=== PATIENT | female | born 1940 | race Caucasian/White ===

== ENCOUNTER 2018-09-30 15:58 | Inpatient (IN) | payer MEDICARE, OTHER ==
[2018-10-01] MEDS ORDERED: Albuterol 8 GM Inhaler INH PRN (13:54)
--- NOTE | 2018-10-01 14:59 | PCM.HP ---
H&P History of Present Illness - General Date of Service: 10/01/18 Admit Problem/Dx: Admission Diagnosis/Problem Admission Diagnosis/Problem Arthroplasty of knee Source of Information: Patient History Limitations: Reports: No Limitations - History of Present Illness Initial Comments - Free Text/Narative: Ms. Young is a 78 yo female with PMH of OA, HTN, CHF, obesity, HLD, JEANE, nonalcoholic liver disease, COPD, DM, and chronic kidney disease who is admitted to swing bed for rehabilitation following a left total knee arthroplasty. She underwent left TKA on 09/28/18 for end stage osteoarthritis. She had the expected postoperative drop in her hemoglobin. She has had some constipation for which she was given milk of magnesia yesterday with good success. Her hospitalization was otherwise uncomplicated. She states that her knee pain is well controlled on her current regimen. Her appetite has not been great since surgery but she has had no nausea or vomiting. She has not had another bowel movement yet today but denies any abdominal pain or distension. She is usually very regular and has a bowel movement daily. She denies any issues with voiding and has not had any dysuria. No chest pain, shortness of breath, fever, or chills. She is hoping for a quick recovery as her son is here visiting from [place]. Left Knee Pain Score (Numeric/FACES): 4 - Related Data Allergies/Adverse Reactions: Allergies Allergy/AdvReac Type Severity Reaction Status Date / Time penicillin G Allergy Rash Verified 09/30/18 16:24 cerivastatin sodium AdvReac Muscle Verified 09/30/18 16:24 [From Baycol] Aches fluvastatin sodium AdvReac Muscle Verified 09/30/18 16:24 [From Lescol] Aches gemfibrozil AdvReac Muscle Verified 09/30/18 16:24 Aches pravastatin AdvReac Muscle Verified 09/30/18 16:24 Aches Home Medications: Home Meds Albuterol Sulfate [Albuterol Sulfate HFA] 1 - 2 puff PO Q4HR PRN 02/26/13 [ History] Cholecalciferol (Vitamin D3) [Vitamin D] 5,000 unit PO DAILY 02/26/13 [History] Multivitamin [Multi-Vitamin Daily] 1 tab PO DAILY 02/26/13 [History] Fenofibrate Nanocrystallized [Tricor] 145 mg PO DAILY 04/03/17 [History] Budesonide/Formoterol Fumarate [Symbicort 160-4.5 Mcg Inhaler] 2 puff PO BID 10/11 [History] Chlorthalidone 12.5 mg PO Q2D 11/18/17 [History] Insulin Detemir [Levemir Flextouch] 32 unit SQ BEDTIME 11/18/17 [History] Acetaminophen 650 mg PO Q4HR PRN 10/01/18 [History] Aspirin [Aspirin EC] 325 mg PO BIDMEALS 10/01/18 [History] Aspirin [Halfprin] 81 mg PO Q48H 10/01/18 [History] Ezetimibe [Zetia] 10 mg PO DAILY 10/01/18 [History] Lactobacillus Acidophilus [Probiotic] 1 each PO DAILY 10/01/18 [History] Lisinopril 20 mg PO DAILY 10/01/18 [History] Omeprazole 20 mg PO DAILY 10/01/18 [History] Polyethylene Glycol 3350 [MiraLAX] 17 gm PO DAILY 10/01/18 [History] Sennosides/Docusate Sodium [Senna-Docusate Sodium Tablet] 1 tab PO BID 10/01/18 [History] SitaGLIPtin [Januvia] 50 mg PO DAILY 10/01/18 [History] amLODIPine Besylate [Amlodipine Besylate] 2.5 mg PO DAILY 10/01/18 [History] oxyCODONE 5 mg PO Q4HR PRN 10/01/18 [History] traMADol [Ultram] 50 mg PO Q6H PRN 10/01/18 [History] Past Medical History HEENT History: Reports: Cataract Other HEENT History: PSEUDOPHAKOS. HYPERMETROPIA. 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: Reports: Musculoskeletal History: Reports: Osteoarthritis Other Musculoskeletal History: MORBID OBESITY Neurological History: Reports: Concussion, Neuropathy, Peripheral Psychiatric History: Reports: None Endocrine/Metabolic History: Reports: Diabetes, Type II, Obesity/BMI 30+ Hematologic History: Reports: None Immunologic History: Reports: None Oncologic (Cancer) History: Reports: None Dermatologic History: Reports: None - Infectious Disease History Infectious Disease History: Reports: None - Past Surgical History Head Surgeries/Procedures: Reports: None HEENT Surgical History: Reports: Adenoidectomy, Cataract Surgery, Tonsillectomy GI Surgical History: Reports: Appendectomy, Cholecystectomy Musculoskeletal Surgical History: Reports: Hip Replacement, Knee Replacement, Other (See Below) Oncologic Surgical History: Reports: Biopsy of Breast Social & Family History - Family History Cardiac: Reports: Hypertension Oncologic: Reports: Breast, Prostate - Tobacco Use Smoking Status *Q: Former Smoker Years of Tobacco use: 30 Packs/Tins Daily: 1 Used Tobacco, but Quit: Yes Month/Year Tobacco Last Used: - Caffeine Use Caffeine Use: Reports: Coffee, Tea Other Caffeine Use: vivarin one time a day - Alcohol Use Alcohol Use History: No - Recreational Drug Use Recreational Drug Use: No - Living Situation & Occupation Living situation: Reports: Single ( and ), Alone Occupation: Retired H&P Review of Systems - Review of Systems: Review Of Systems: See Below General: Reports: No Symptoms HEENT: Reports: No Symptoms Pulmonary: Reports: No Symptoms Cardiovascular: Reports: No Symptoms Gastrointestinal: Reports: No Symptoms Genitourinary: Reports: No Symptoms Musculoskeletal: Reports: Joint Pain Skin: Reports: No Symptoms Psychiatric: Reports: No Symptoms Neurological: Reports: No Symptoms Exam - Exam Exam: See Below - Vital Signs Vital Signs: Last Vital Signs Temp 36.5 C 10/01/18 12:14 Pulse 80 10/01/18 12:14 Resp 16 10/01/18 12:14 BP 140/79 10/01/18 12:14 Pulse Ox 94 L 10/01/18 12:14 Weight: 82.554 kg - Exam General: Alert, Oriented, Cooperative HEENT: Conjunctiva Clear, Mucosa Moist & [place], Posterior Pharynx Clear, Pupils Equal, Pupils Reactive Neck: Supple, Trachea Midline. No: Lymphadenopathy, Thyromegaly Lungs: Clear to Auscultation, Normal Respiratory Effort Cardiovascular: Regular Rate, Regular Rhythm, Normal S1, Normal S2 GI/Abdominal Exam: Normal Bowel Sounds, Soft, Non-Tender, No Organomegaly, No Distention, No Mass Extremities: Normal Inspection, Non-Tender, No Pedal Edema, Normal Capillary Refill, Other (left knee incision is well approximated and without any surrounding erythema or edema) Peripheral Pulses: 2+: Radial (L), Radial (R) Skin: Warm, Dry, Incision *Q Meaningful Use (ADM) - VTE *Q VTE Mechanical Contraindications *Q: Bilateral Lower Surgery VTE Pharmacological Contraindications *Q: Risk of Bleeding - Problem List (1) S/P total knee arthroplasty SNOMED Code(s): 2274681990190, 772596712, 8252779343833 ICD Code: Z96.659 - PRESENCE OF UNSPECIFIED ARTIFICIAL KNEE JOINT Status: Acute Current Visit: Yes Qualifiers: Laterality: left Qualified Code(s): Z96.652 - Presence of left artificial knee joint (2) Constipation SNOMED Code(s): 59900478 ICD Code: K59.00 - CONSTIPATION, UNSPECIFIED Status: Acute Current Visit : Yes Qualifiers: Constipation type: drug induced constipation Qualified Code(s): K59.03 - Drug induced constipation (3) Diabetes SNOMED Code(s): 23131767 ICD Code: E11.9 - TYPE 2 DIABETES MELLITUS WITHOUT COMPLICATIONS Status: Chronic Current Visit: Yes Qualifiers: Diabetes mellitus type: type 2 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: with intermodal truck driver use Diabetes mellitus complication status: with other specified complication Qualified Code(s): E11.69 - Type 2 diabetes mellitus with other specified complication; Z79.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 (4) Hyperlipidemia SNOMED Code(s): 58359910 ICD Code: E78.5 - HYPERLIPIDEMIA, UNSPECIFIED Status: Chronic Current Visit: Yes Qualifiers: Hyperlipidemia type: unspecified Qualified Code(s): E78.5 - Hyperlipidemia , unspecified (5) Osteoarthritis SNOMED Code(s): 722555581 ICD Code: M19.90 - UNSPECIFIED OSTEOARTHRITIS, UNSPECIFIED SITE Status: Chronic Current Visit: Yes Qualifiers: Osteoarthritis location: multiple joints Osteoarthritis type: primary Qualified Code(s): M15.0 - Primary generalized (osteo)arthritis (6) Sleep apnea SNOMED Code(s): 26657570 ICD Code: G47.30 - SLEEP APNEA, UNSPECIFIED Status: Chronic Current Visit : Yes Qualifiers: Sleep apnea type: obstructive Qualified Code(s): G47.33 - Obstructive sleep apnea (adult) (pediatric) (7) Chronic kidney disease SNOMED Code(s): 340523205 ICD Code: N18.9 - CHRONIC KIDNEY DISEASE, UNSPECIFIED Status: Chronic Current Visit: Yes Qualifiers: Chronic kidney disease stage: stage 3 (moderate) Qualified Code(s): N18.3 - Chronic kidney disease, stage 3 (moderate) (8) COPD (chronic obstructive pulmonary disease) SNOMED Code(s): 64289817 ICD Code: J44.9 - CHRONIC OBSTRUCTIVE PULMONARY DISEASE, UNSPECIFIED Status : Chronic Current Visit: No Qualifiers: COPD type: unspecified COPD Qualified Code(s): J44.9 - Chronic obstructive pulmonary disease, unspecified (9) Heart failure, diastolic, chronic SNOMED Code(s): 328439942 ICD Code: I50.32 - CHRONIC DIASTOLIC (CONGESTIVE) HEART FAILURE Status: Chronic Current Visit: No (10) Hypertension SNOMED Code(s): 35546471 ICD Code: I10 - ESSENTIAL (PRIMARY) HYPERTENSION Status: Chronic Current Visit: No Qualifiers: Hypertension type: essential hypertension Qualified Code(s): I10 - Essential (primary) hypertension (11) Morbid obesity SNOMED Code(s): 690140263 ICD Code: E66.01 - MORBID (SEVERE) OBESITY DUE TO EXCESS CALORIES Status: Chronic Current Visit: No (12) Nonalcoholic liver disease, chronic SNOMED Code(s): 96631601 ICD Code: K76.9 - LIVER DISEASE, UNSPECIFIED Status: Chronic Current Visit: No Problem List Initiated/Reviewed/Updated: Yes Orders Last 24hrs: Active Orders 24 hr Category Date Time Status Admission Status [Patient Status] [ADT] Routine ADT 10/01/18 08:00 Active Accu Check [Blood Glucose Check, Bedside] [RC] 07,11,17 Care 10/01/18 12:37 Active Communication Order [RC] , Care 10/01/18 12:38 Active May Shower [RC] 07 Care 10/01/18 12:38 Active Up With Assistance [RC] , Care 10/01/18 12:37 Active OT Evaluation and Treatment [CONS] Routine Cons 10/01/18 12:36 Active PT Evaluation and Treatment [CONS] Routine Cons 10/01/18 12:36 Active ADA Diabetic [[place] [employer] Diet] [DIET Diet 10/01/18 Dinner Active ] Acetaminophen [Tylenol] Med 10/01/18 13:54 Ordered 650 mg PO Q4HR PRN Albuterol [Take Home: Albuterol 6.7 GM, 1 INH Pack] Med 10/01/18 13:54 Ordered 2 puff INH Q4HR PRN Aspirin [Ecotrin] Med 10/01/18 18:00 Ordered 325 mg PO BIDMEALS Budesonide/Formoterol Med 10/01/18 20:00 Ordered 2 puff PO BID Chlorthalidone Med 10/01/18 14:00 Ordered 12.5 mg PO Q2D Cholecalciferol (Vitamin D3) Med 10/02/18 08:00 Ordered 5,000 unit PO DAILY Docusate Sodium/Sennosides [Senna Plus] Med 10/01/18 20:00 Ordered 1 tab PO BID Ezetimibe [Zetia] Med 10/02/18 08:00 Ordered 10 mg PO DAILY Fenofibrate Nanocrystallized [Tricor] Med 10/02/18 08:00 Ordered 145 mg PO DAILY Insulin Detemir [Levemir Flextouch] Med 10/01/18 20:00 Ordered 32 unit SQ BEDTIME Lactobacillus Acidophilus [Probiotic] Med 10/02/18 08:00 Ordered 1 each PO DAILY Lisinopril [Prinivil] Med 10/02/18 08:00 Ordered 20 mg PO DAILY Multivitamin [Multi-Vitamin Daily] Med 10/02/18 08:00 Ordered 1 tab PO DAILY Non-Formulary Medication [NF Drug] Med 10/02/18 08:00 Ordered 1 each INH DAILY Omeprazole Med 10/02/18 08:00 Ordered 20 mg PO DAILY Polyethylene Glycol 3350 [MiraLAX] Med 10/02/18 08:00 Ordered 17 gm PO DAILY SitaGLIPtin [Januvia] Med 10/02/18 08:00 Ordered 50 mg PO DAILY amLODIPine [Norvasc] Med 10/02/18 08:00 Ordered 2.5 mg PO DAILY oxyCODONE Med 10/01/18 13:54 Ordered 5 mg PO Q4HR PRN traMADol [Ultram] Med 10/01/18 13:54 Ordered 50 mg PO Q6H PRN DARELL Bandage [Elastic Wrap] [OM.PC] Routine Oth 10/01/18 12:42 Ordered CM Case Management Follow Up [CM] Routine Oth 10/01/18 12:37 Ordered Ice Pack [Ice Therapy] [OM.PC] Routine Oth 10/01/18 12:38 Ordered VTE Mechanical Contraindications [AST] Click To Edit Oth 10/01/18 14:56 Ordered VTE Pharmacological Contraindications [AST] Click To Oth 10/01/18 14:56 Ordered Edit Resuscitation Status Routine Resus Stat 10/01/18 13:53 Ordered Medication Orders Acetaminophen (Tylenol) 650 mg PO Q4HR PRN PRN Reason: Pain (mild 1-3) Albuterol (Take Home: Albuterol 6.7 Gm, 1 Inh Pack) packet INH Q4HR PRN PRN Reason: Shortness of Breath Amlodipine Besylate (Norvasc) 2.5 mg PO DAILY ERIC Aspirin (Ecotrin) 325 mg PO BIDMEALS ERIC Chlorthalidone (Chlorthalidone) 12.5 mg PO Q48H ERIC Ezetimibe (Zetia) 10 mg PO DAILY ERIC Fenofibrate (Fenofibrate) 134 mg PO DAILY ERIC Lisinopril (Prinivil) 20 mg PO DAILY ERIC Non-Formulary Medication (Budesonide/Formoterol) 2 puff PO BID ERIC Non-Formulary Medication (Cholecalciferol (Vitamin D3)) 5,000 unit PO DAILY ERIC Non-Formulary Medication (Insulin Detemir [Levemir Flextouch]) 32 unit SQ BEDTIME ERIC Non-Formulary Medication (Lactobacillus Acidophilus [Probiotic]) 1 each PO DAILY ERIC Non-Formulary Medication (Multivitamin [Multi-Vitamin Daily]) 1 tab PO DAILY ERIC Non-Formulary Medication (Sitagliptin [Januvia]) 50 mg PO DAILY ERIC Non-Formulary Medication (Nf Drug) 1 each INH DAILY ERIC Omeprazole (Omeprazole) 20 mg PO DAILY ERIC Oxycodone HCl (Oxycodone) 5 mg PO Q4HR PRN PRN Reason: Pain (severe 7-10) Polyethylene Glycol (Miralax) 17 gm PO DAILY ERIC Senna/Docusate Sodium (Senna Plus) 1 tab PO BID ERIC Tramadol HCl (Ultram) 50 mg PO Q6H PRN PRN Reason: Pain (moderate 4-6) Assessment/Plan Comment:: #1 s/p TKA - Patient is doing well postoperatively. - Wound cares and icing per orders from [place]. - Continue current pain regimen: tylenol for mild, tramadol for moderate, and oxycodone for severe. - Will wean narcotics as able. - PT and OT consults. #2 Constipation - Continue miralax and senna. - Anticipate this will improve as her narcotic requirements decrease. - Can use milk of magnesia PRN since this worked well for her in [place]. #3 Diabetes #4 Hyperlipidemia #5 OA #6 JEANE #7 CKD #8 COPD #9 CHF #10 Hypertension #11 Obesity #12 Nonalcoholic fatty liver disease - All chronic conditions stable. - Accuchecks TID. - Patient does not use CPAP. - Continue all home medications as per hospital discharge list. Patient will be admitted to swing bed for strengthening prior to return home independently - length of stay will be determined by how well she progresses with PT but would anticipate a max of 1-2 weeks. Her PCP will follow her course from here. No indication for VTE prophylaxis other than the aspirin recommended by ortho. Code status is full - discussed on admission.
[2018-10-01] MEDS: oxyCODONE 5 MG Tab PO PRN ×2 (15:03→21:02)
[2018-10-01] MEDS: Acetaminophen 325 MG Tab PO PRN (15:03)
[2018-10-01] MEDS: Aspirin 325 MG Tab.EC PO SCH (18:02)
[2018-10-01] MEDS: Insulin Glargine,Human Rec. Analog 100 Units/ML 3 ML Pen SUBCUT SCH (20:14)
[2018-10-02] MEDS: oxyCODONE 5 MG Tab PO PRN ×4 (03:59→17:27)
[2018-10-02] MEDS: Polyethylene Glycol 3350 Powder 17 GM Packet PO SCH (07:55)
[2018-10-02] MEDS: Omeprazole 20 MG Cap.CR PO SCH (07:56)
[2018-10-02] MEDS: Fenofibrate,Micronized 134 MG Cap PO SCH (08:00)
[2018-10-02] MEDS ORDERED: amLODIPine 5 MG Tab PO SCH (08:00)
[2018-10-02] MEDS ORDERED: Non-Formulary Medication 1 Each INH SCH (08:00)
[2018-10-02] MEDS: Aspirin 325 MG Tab.EC PO SCH ×2 (08:01→17:27)
[2018-10-02] MEDS: SitaGLIPtin 25 MG Tab PO SCH (08:01)
[2018-10-02] MEDS: Lisinopril 20 MG Tab PO SCH (08:01)
[2018-10-02] MEDS: Lactobacillus Rhamnosus GG (Probiotic) Cap PO SCH (08:02)
[2018-10-02] MEDS: Ezetimibe 10 MG Tab PO SCH (08:02)
[2018-10-02] MEDS: Multivitamins with Iron/Calcium/Folic Acid/Minerals Tab PO SCH (08:02)
[2018-10-02] MEDS: Cholecalciferol (Vitamin D3) 25 MCG Tab PO SCH (08:08)
[2018-10-02] MEDS: FLUTICASONE INH SCH (08:12)
[2018-10-02] MEDS: VILANTEROL INH SCH (08:12)
[2018-10-02] MEDS: Chlorthalidone 25 MG Tab PO SCH (09:29)
[2018-10-02] MEDS: traMADol 50 MG Tab PO PRN (13:28)
--- NOTE | 2018-10-02 17:58 | PN ---
Progress Note for LAY HERNÁNDEZ Date: 10/02/2018 Room #: VM.210 SUBJECTIVE: This is a 78-year-old who was admitted to swing bed after a 3-day acute stay for a left total knee replacement performed on 09/[address] Wood. She does have underlying diabetes. She has had a few blood sugar checks when she has been here, most recently it was 150 before eating. She is on Levemir 32 units daily and Januvia. We discussed sliding scale is not needed unless blood sugars would get up over like 250. Blood pressure is a little bit higher right now getting back from PT, but she feels like her pain is under good control. She has been getting Tylenol and took an oxycodone right before she went up for PT. She lives in her own home and has stairs. She used 2 oxycodone yesterday. She just came yesterday and 3 today. She has not had any breathing problems. She does have a history of COPD, otherwise, has been on aspirin twice daily for DVT prophylaxis. Her postop hemoglobin was 11.9. Her creatinine was excellent at 1.16 on the . She is having bowel movements. OBJECTIVE: Vital Signs: Right now, her temperature 98.2, pulse 90, blood pressure 154/83, respiratory rate 18, and O2 of 97% on room air. General: She is in no acute distress. Heart: Regular rate and rhythm. Lungs: Lung sounds are clear to auscultation bilaterally without crackles or wheezes. Extremities: Warm and dry. No edema. No calf tenderness. Her left knee incision is well healed. Abdomen: Mildly distended, that is her baseline. Neurologic: Mental status: She is alert and orientated x3. ASSESSMENT AND PLAN: 1. Left knee replacement, doing well. Continue with physical therapy and same pain control. Up in the halls t.i.d. per Physical Therapy over the weekend. 2. Diabetes type 2, on Lantus 32 units daily. We will continue with the same and make adjustments if needed. We will continue with at least 3 times a day Accu-Cheks. 3. Essential hypertension. We will continue to monitor blood pressures. We will continue home medications. 4. Deep vein thrombosis prophylaxis. We will continue the aspirin as outlined by Ortho. 5. Obesity and history of sleep apnea. She does not wear a CPAP. 6. Chronic obstructive pulmonary disease. We will continue her same inhalers. 7. DVT prophylaxis on ASA per ortho PLAN: At this point, the patient will continue on swing bed cares. It is going to be at least another week of therapies. We will check in on her periodically and as needed. Otherwise, she will continue with incentive spirometry and same pain control measures and bowel regimen. MKA: 10/02/2018 17:18:59 MODL: 10/02/2018 17:40:58 /[id number] MTDKyra
[2018-10-02] MEDS: Insulin Glargine,Human Rec. Analog 100 Units/ML 3 ML Pen SUBCUT SCH (20:56)
[2018-10-03] MEDS: oxyCODONE 5 MG Tab PO PRN ×5 (03:43→22:49)
[2018-10-03] MEDS: traMADol 50 MG Tab PO PRN ×3 (06:05→19:40)
[2018-10-03] MEDS: Aspirin 325 MG Tab.EC PO SCH ×2 (08:00→18:00)
[2018-10-03] MEDS: Fenofibrate,Micronized 134 MG Cap PO SCH (08:00)
[2018-10-03] MEDS: Polyethylene Glycol 3350 Powder 17 GM Packet PO SCH (08:00)
[2018-10-03] MEDS: SitaGLIPtin 25 MG Tab PO SCH (08:00)
[2018-10-03] MEDS: Ezetimibe 10 MG Tab PO SCH (08:01)
[2018-10-03] MEDS: Lisinopril 20 MG Tab PO SCH (08:01)
[2018-10-03] MEDS: Cholecalciferol (Vitamin D3) 25 MCG Tab PO SCH (08:01)
[2018-10-03] MEDS: Multivitamins with Iron/Calcium/Folic Acid/Minerals Tab PO SCH (08:02)
[2018-10-03] MEDS: Lactobacillus Rhamnosus GG (Probiotic) Cap PO SCH (08:02)
[2018-10-03] MEDS: amLODIPine 2.5 MG Tab PO SCH (08:04)
[2018-10-03] MEDS: FLUTICASONE INH SCH (08:05)
[2018-10-03] MEDS: VILANTEROL INH SCH (08:05)
[2018-10-03] MEDS: Omeprazole 20 MG Cap.CR PO SCH (08:25)
[2018-10-03] MEDS: Acetaminophen 325 MG Tab PO PRN (11:02)
[2018-10-03] MEDS: Insulin Glargine,Human Rec. Analog 100 Units/ML 3 ML Pen SUBCUT SCH (19:47)
[2018-10-04] MEDS: oxyCODONE 5 MG Tab PO PRN ×5 (04:21→22:11)
[2018-10-04] MEDS: traMADol 50 MG Tab PO PRN ×2 (06:37→16:15)
[2018-10-04] MEDS: Polyethylene Glycol 3350 Powder 17 GM Packet PO SCH (08:18)
[2018-10-04] MEDS: Omeprazole 20 MG Cap.CR PO SCH (08:18)
[2018-10-04] MEDS: Aspirin 325 MG Tab.EC PO SCH ×2 (08:18→17:16)
[2018-10-04] MEDS: Lisinopril 20 MG Tab PO SCH (08:19)
[2018-10-04] MEDS: SitaGLIPtin 25 MG Tab PO SCH (08:19)
[2018-10-04] MEDS: Cholecalciferol (Vitamin D3) 25 MCG Tab PO SCH (08:20)
[2018-10-04] MEDS: amLODIPine 2.5 MG Tab PO SCH (08:20)
[2018-10-04] MEDS: Lactobacillus Rhamnosus GG (Probiotic) Cap PO SCH (08:20)
[2018-10-04] MEDS: Ezetimibe 10 MG Tab PO SCH (08:21)
[2018-10-04] MEDS: Fenofibrate,Micronized 134 MG Cap PO SCH (08:21)
[2018-10-04] MEDS: Multivitamins with Iron/Calcium/Folic Acid/Minerals Tab PO SCH (08:21)
[2018-10-04] MEDS: Chlorthalidone 25 MG Tab PO SCH (08:22)
[2018-10-04] MEDS: VILANTEROL INH SCH (09:10)
[2018-10-04] MEDS: FLUTICASONE INH SCH (09:10)
[2018-10-04] MEDS: Insulin Glargine,Human Rec. Analog 100 Units/ML 3 ML Pen SUBCUT SCH (20:40)
[2018-10-05] MEDS: traMADol 50 MG Tab PO PRN ×3 (05:35→22:19)
[2018-10-05] MEDS: Multivitamins with Iron/Calcium/Folic Acid/Minerals Tab PO SCH (08:26)
[2018-10-05] MEDS: Polyethylene Glycol 3350 Powder 17 GM Packet PO SCH (08:26)
[2018-10-05] MEDS: SitaGLIPtin 25 MG Tab PO SCH (08:26)
[2018-10-05] MEDS: Omeprazole 20 MG Cap.CR PO SCH (08:27)
[2018-10-05] MEDS: Cholecalciferol (Vitamin D3) 25 MCG Tab PO SCH (08:27)
[2018-10-05] MEDS: Ezetimibe 10 MG Tab PO SCH (08:27)
[2018-10-05] MEDS: Lisinopril 20 MG Tab PO SCH (08:27)
[2018-10-05] MEDS: Lactobacillus Rhamnosus GG (Probiotic) Cap PO SCH (08:27)
[2018-10-05] MEDS: Aspirin 325 MG Tab.EC PO SCH ×2 (08:27→19:32)
[2018-10-05] MEDS: Fenofibrate,Micronized 134 MG Cap PO SCH (08:27)
[2018-10-05] MEDS: amLODIPine 2.5 MG Tab PO SCH (08:28)
[2018-10-05] MEDS: VILANTEROL INH SCH (08:30)
[2018-10-05] MEDS: FLUTICASONE INH SCH (08:30)
[2018-10-05] MEDS: Acetaminophen 325 MG Tab PO PRN ×2 (09:49→19:33)
[2018-10-05] MEDS: oxyCODONE 5 MG Tab PO PRN ×2 (09:49→19:34)
[2018-10-05] MEDS: Insulin Glargine,Human Rec. Analog 100 Units/ML 3 ML Pen SUBCUT SCH (19:33)
[2018-10-06] MEDS: oxyCODONE 5 MG Tab PO PRN ×3 (00:51→19:36)
[2018-10-06] MEDS: Acetaminophen 325 MG Tab PO PRN ×3 (00:52→19:36)
[2018-10-06 07:04] LABS: ANION GAP 12.6 mmol/L (10-20)
[2018-10-06] MEDS: FLUTICASONE INH SCH (07:48)
[2018-10-06] MEDS: VILANTEROL INH SCH (07:48)
[2018-10-06] MEDS: Fenofibrate,Micronized 134 MG Cap PO SCH (07:49)
[2018-10-06] MEDS: Cholecalciferol (Vitamin D3) 25 MCG Tab PO SCH (07:49)
[2018-10-06] MEDS: Multivitamins with Iron/Calcium/Folic Acid/Minerals Tab PO SCH (07:49)
[2018-10-06] MEDS: SitaGLIPtin 25 MG Tab PO SCH (07:49)
[2018-10-06] MEDS: Polyethylene Glycol 3350 Powder 17 GM Packet PO SCH (07:50)
[2018-10-06] MEDS: Omeprazole 20 MG Cap.CR PO SCH (07:50)
[2018-10-06] MEDS: Ezetimibe 10 MG Tab PO SCH (07:50)
[2018-10-06] MEDS: Aspirin 325 MG Tab.EC PO SCH ×2 (07:50→17:14)
[2018-10-06] MEDS: Lactobacillus Rhamnosus GG (Probiotic) Cap PO SCH (07:50)
[2018-10-06] MEDS: Lisinopril 20 MG Tab PO SCH (07:51)
[2018-10-06] MEDS: amLODIPine 2.5 MG Tab PO SCH (07:51)
[2018-10-06] MEDS: Chlorthalidone 25 MG Tab PO SCH (10:44)
[2018-10-06] MEDS: Insulin Glargine,Human Rec. Analog 100 Units/ML 3 ML Pen SUBCUT SCH (19:36)
[2018-10-06] MEDS: traMADol 50 MG Tab PO PRN (22:53)
[2018-10-07] MEDS: Acetaminophen 325 MG Tab PO PRN ×3 (02:42→17:25)
[2018-10-07] MEDS: oxyCODONE 5 MG Tab PO PRN ×3 (02:43→17:25)
[2018-10-07] MEDS: FLUTICASONE INH SCH (08:01)
[2018-10-07] MEDS: VILANTEROL INH SCH (08:01)
[2018-10-07] MEDS: Polyethylene Glycol 3350 Powder 17 GM Packet PO SCH (08:02)
[2018-10-07] MEDS: Lactobacillus Rhamnosus GG (Probiotic) Cap PO SCH (08:03)
[2018-10-07] MEDS: Fenofibrate,Micronized 134 MG Cap PO SCH (08:03)
[2018-10-07] MEDS: Ezetimibe 10 MG Tab PO SCH (08:03)
[2018-10-07] MEDS: SitaGLIPtin 25 MG Tab PO SCH (08:03)
[2018-10-07] MEDS: Omeprazole 20 MG Cap.CR PO SCH (08:03)
[2018-10-07] MEDS: Cholecalciferol (Vitamin D3) 25 MCG Tab PO SCH (08:03)
[2018-10-07] MEDS: Multivitamins with Iron/Calcium/Folic Acid/Minerals Tab PO SCH (08:04)
[2018-10-07] MEDS: Aspirin 325 MG Tab.EC PO SCH ×2 (08:04→17:25)
[2018-10-07] MEDS: Lisinopril 20 MG Tab PO SCH (08:09)
[2018-10-07] MEDS: amLODIPine 2.5 MG Tab PO SCH (08:09)
[2018-10-07] MEDS: traMADol 50 MG Tab PO PRN ×2 (10:12→19:40)
[2018-10-07] MEDS: Insulin Glargine,Human Rec. Analog 100 Units/ML 3 ML Pen SUBCUT SCH (19:40)
[2018-10-08] MEDS: oxyCODONE 5 MG Tab PO PRN ×2 (01:03→20:56)
[2018-10-08] MEDS: Acetaminophen 325 MG Tab PO PRN (01:04)
[2018-10-08] MEDS: traMADol 50 MG Tab PO PRN (06:20)
[2018-10-08] MEDS: Cholecalciferol (Vitamin D3) 25 MCG Tab PO SCH (08:26)
[2018-10-08] MEDS: Fenofibrate,Micronized 134 MG Cap PO SCH (08:26)
[2018-10-08] MEDS: Polyethylene Glycol 3350 Powder 17 GM Packet PO SCH (08:26)
[2018-10-08] MEDS: SitaGLIPtin 25 MG Tab PO SCH (08:27)
[2018-10-08] MEDS: Multivitamins with Iron/Calcium/Folic Acid/Minerals Tab PO SCH (08:27)
[2018-10-08] MEDS: Ezetimibe 10 MG Tab PO SCH (08:27)
[2018-10-08] MEDS: Aspirin 325 MG Tab.EC PO SCH ×2 (08:28→17:00)
[2018-10-08] MEDS: FLUTICASONE INH SCH (08:28)
[2018-10-08] MEDS: VILANTEROL INH SCH (08:28)
[2018-10-08] MEDS: Omeprazole 20 MG Cap.CR PO SCH (08:28)
[2018-10-08] MEDS: Lactobacillus Rhamnosus GG (Probiotic) Cap PO SCH (08:28)
[2018-10-08] MEDS: Lisinopril 20 MG Tab PO SCH (08:30)
[2018-10-08] MEDS: amLODIPine 2.5 MG Tab PO SCH (08:30)
[2018-10-08] MEDS: Insulin Glargine,Human Rec. Analog 100 Units/ML 3 ML Pen SUBCUT SCH (20:30)
[2018-10-09 07:27] LABS: ANION GAP 13.5 mmol/L (10-20)
[2018-10-09] MEDS: oxyCODONE 5 MG Tab PO PRN ×3 (08:35→22:50)
[2018-10-09] MEDS: Aspirin 325 MG Tab.EC PO SCH ×2 (08:36→18:48)
[2018-10-09] MEDS: Acetaminophen 325 MG Tab PO PRN ×2 (08:37→14:58)
[2018-10-09] MEDS: Multivitamins with Iron/Calcium/Folic Acid/Minerals Tab PO SCH (08:37)
[2018-10-09] MEDS: Lisinopril 20 MG Tab PO SCH (08:44)
[2018-10-09] MEDS: Ezetimibe 10 MG Tab PO SCH (08:44)
[2018-10-09] MEDS: Omeprazole 20 MG Cap.CR PO SCH (08:44)
[2018-10-09] MEDS: Lactobacillus Rhamnosus GG (Probiotic) Cap PO SCH (08:44)
[2018-10-09] MEDS: SitaGLIPtin 25 MG Tab PO SCH (08:45)
[2018-10-09] MEDS: Fenofibrate,Micronized 134 MG Cap PO SCH (08:45)
[2018-10-09] MEDS: Polyethylene Glycol 3350 Powder 17 GM Packet PO SCH (08:45)
[2018-10-09] MEDS: Cholecalciferol (Vitamin D3) 25 MCG Tab PO SCH (09:26)
[2018-10-09] MEDS: VILANTEROL INH SCH (09:26)
[2018-10-09] MEDS: FLUTICASONE INH SCH (09:26)
[2018-10-09] MEDS: amLODIPine 2.5 MG Tab PO SCH (09:53)
[2018-10-09] MEDS: Insulin Glargine,Human Rec. Analog 100 Units/ML 3 ML Pen SUBCUT SCH (20:21)
[2018-10-09] MEDS: traMADol 50 MG Tab PO PRN (20:27)
[2018-10-10] MEDS: Polyethylene Glycol 3350 Powder 17 GM Packet PO SCH (08:52)
[2018-10-10] MEDS: Lactobacillus Rhamnosus GG (Probiotic) Cap PO SCH (08:53)
[2018-10-10] MEDS: Fenofibrate,Micronized 134 MG Cap PO SCH (08:53)
[2018-10-10] MEDS: Aspirin 325 MG Tab.EC PO SCH ×2 (08:53→20:20)
[2018-10-10] MEDS: Cholecalciferol (Vitamin D3) 25 MCG Tab PO SCH (08:53)
[2018-10-10] MEDS: Multivitamins with Iron/Calcium/Folic Acid/Minerals Tab PO SCH (08:53)
[2018-10-10] MEDS: Omeprazole 20 MG Cap.CR PO SCH (08:53)
[2018-10-10] MEDS: Ezetimibe 10 MG Tab PO SCH (08:53)
[2018-10-10] MEDS: traMADol 50 MG Tab PO PRN (08:53)
[2018-10-10] MEDS: SitaGLIPtin 25 MG Tab PO SCH (08:53)
[2018-10-10] MEDS: amLODIPine 2.5 MG Tab PO SCH (08:54)
[2018-10-10] MEDS: FLUTICASONE INH SCH (08:54)
[2018-10-10] MEDS: Lisinopril 20 MG Tab PO SCH (08:54)
[2018-10-10] MEDS: VILANTEROL INH SCH (08:54)
[2018-10-10] MEDS: Insulin Glargine,Human Rec. Analog 100 Units/ML 3 ML Pen SUBCUT SCH (20:22)
[2018-10-10] MEDS: oxyCODONE 5 MG Tab PO PRN (22:24)
[2018-10-11] MEDS: Lisinopril 20 MG Tab PO SCH (08:05)
[2018-10-11] MEDS: VILANTEROL INH SCH (08:05)
[2018-10-11] MEDS: FLUTICASONE INH SCH (08:05)
[2018-10-11] MEDS: Polyethylene Glycol 3350 Powder 17 GM Packet PO SCH (08:06)
[2018-10-11] MEDS: Fenofibrate,Micronized 134 MG Cap PO SCH (08:06)
[2018-10-11] MEDS: amLODIPine 2.5 MG Tab PO SCH (08:06)
[2018-10-11] MEDS: Lactobacillus Rhamnosus GG (Probiotic) Cap PO SCH (08:06)
[2018-10-11] MEDS: Aspirin 325 MG Tab.EC PO SCH ×2 (08:06→20:32)
[2018-10-11] MEDS: SitaGLIPtin 25 MG Tab PO SCH (08:06)
[2018-10-11] MEDS: Ezetimibe 10 MG Tab PO SCH (08:07)
[2018-10-11] MEDS: traMADol 50 MG Tab PO PRN ×2 (08:07→20:31)
[2018-10-11] MEDS: Omeprazole 20 MG Cap.CR PO SCH (08:07)
[2018-10-11] MEDS: Multivitamins with Iron/Calcium/Folic Acid/Minerals Tab PO SCH (08:07)
[2018-10-11] MEDS: Cholecalciferol (Vitamin D3) 25 MCG Tab PO SCH (08:07)
[2018-10-11] MEDS: Insulin Glargine,Human Rec. Analog 100 Units/ML 3 ML Pen SUBCUT SCH (20:33)
[2018-10-11] MEDS: oxyCODONE 5 MG Tab PO PRN (22:36)
[2018-10-12] MEDS: Lactobacillus Rhamnosus GG (Probiotic) Cap PO SCH (07:44)
[2018-10-12] MEDS: Omeprazole 20 MG Cap.CR PO SCH (07:44)
[2018-10-12] MEDS: Fenofibrate,Micronized 134 MG Cap PO SCH (07:45)
[2018-10-12] MEDS: Lisinopril 20 MG Tab PO SCH (07:46)
[2018-10-12] MEDS: amLODIPine 2.5 MG Tab PO SCH (07:46)
[2018-10-12] MEDS: Ezetimibe 10 MG Tab PO SCH (07:47)
[2018-10-12] MEDS: traMADol 50 MG Tab PO PRN ×2 (07:48→18:59)
[2018-10-12] MEDS: Multivitamins with Iron/Calcium/Folic Acid/Minerals Tab PO SCH (07:48)
[2018-10-12] MEDS: Aspirin 325 MG Tab.EC PO SCH ×2 (07:49→20:33)
[2018-10-12] MEDS: Cholecalciferol (Vitamin D3) 25 MCG Tab PO SCH (07:49)
[2018-10-12] MEDS: Polyethylene Glycol 3350 Powder 17 GM Packet PO SCH (07:49)
[2018-10-12] MEDS: VILANTEROL INH SCH (07:51)
[2018-10-12] MEDS: FLUTICASONE INH SCH (07:51)
[2018-10-12] MEDS: SitaGLIPtin 25 MG Tab PO SCH (10:54)
[2018-10-12] MEDS: oxyCODONE 5 MG Tab PO PRN (20:33)
[2018-10-12] MEDS: Insulin Glargine,Human Rec. Analog 100 Units/ML 3 ML Pen SUBCUT SCH (20:34)
[2018-10-13] MEDS: oxyCODONE 5 MG Tab PO PRN (04:17)
[2018-10-13 04:32] VITALS: PULSE 78
[2018-10-13] MEDS: Polyethylene Glycol 3350 Powder 17 GM Packet PO SCH (08:24)
[2018-10-13] MEDS: Fenofibrate,Micronized 134 MG Cap PO SCH (08:24)
[2018-10-13] MEDS: Aspirin 325 MG Tab.EC PO SCH (08:24)
[2018-10-13] MEDS: Ezetimibe 10 MG Tab PO SCH (08:24)
[2018-10-13] MEDS: Multivitamins with Iron/Calcium/Folic Acid/Minerals Tab PO SCH (08:25)
[2018-10-13] MEDS: traMADol 50 MG Tab PO PRN (08:25)
[2018-10-13] MEDS: Cholecalciferol (Vitamin D3) 25 MCG Tab PO SCH (08:25)
[2018-10-13] MEDS: Omeprazole 20 MG Cap.CR PO SCH (08:25)
[2018-10-13] MEDS: SitaGLIPtin 25 MG Tab PO SCH (08:25)
[2018-10-13] MEDS: Lactobacillus Rhamnosus GG (Probiotic) Cap PO SCH (08:25)
[2018-10-13] MEDS: amLODIPine 2.5 MG Tab PO SCH (08:25)
[2018-10-13 08:26] VITALS: BP 120/66
[2018-10-13] MEDS: Lisinopril 20 MG Tab PO SCH (08:26)
[2018-10-13] MEDS: FLUTICASONE INH SCH (08:26)
[2018-10-13] MEDS: VILANTEROL INH SCH (08:26)
--- NOTE | 2018-10-13 12:50 | DISCH ---
PRIMARY DISCHARGE DIAGNOSIS: Left total knee replacement on 09/28. SECONDARY DISCHARGE DIAGNOSES: 1. Essential hypertension. 2. Type 2 diabetes, controlled, on long-term insulin. 3. Chronic kidney disease with creatinine at 1.3 on 10/09. 4. Hyperlipidemia. 5. Postoperative anemia. 6. Hemoglobin 11.7 here. No signs of bleeding. 7. Obesity. 8. Deep venous thrombosis prophylaxis with aspirin per Ortho. 9. Chronic obstructive pulmonary disease, doing better with Breo. 10.Chronic diastolic heart failure, not even requiring her chlorthalidone. 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 12.Sleep apnea, not on CPAP. REASON FOR ADMISSION: On the date of admission, this 78-year-old female who had an elective left knee replacement in [place] was transitioned to swing bed for further therapies. The patient was given a bowel regimen and did have a normal bowel movement for the first time she states this morning, which is prior to her discharge. She was using prune juice and stool softeners and laxatives. Her pain was well controlled. She did get 1 oxycodone before therapy and then 1-2 tramadol per day in addition to her p.r.n. Tylenol, although that had been used for about 4 days prior to discharge. Breathing was good. She was not short of breath and in fact felt she could walk better, using her Breo instead of her home Symbicort. She did feel poorly yesterday after eating supper, sort of like sick to her stomach, felt like her knee was more red and warm, and also had developed a dime-sized ulcer to her right upper buttock. This morning her blood sugar was actually lower than normal at 76, but she did not have any lows during her stay. Her blood sugars were all pretty excellent with the highest reading here being about a 259 2 daysafter she came, but then no readings over 200. She did have an Optifoam type dressing to the sore on her buttock, but recommendations were made just to use A and D barrier cream type ointment on discharge. The patient was electing to go home with just a bath aide and not home health so she could get up and out and do things in the community and plan for outpatient PT, which is scheduled for . Her oxycodone was stopped on discharge and she was given 30 tramadol to take before PT and as needed. We did decrease her insulin to 30 units daily. She will stay off her chlorthalidone till her followup with myself, which is on 10/23. Then, she will be due again for a recheck in October with her lab work for diabetes. Her Symbicort was changed over to Breo, a new prescription was sent. Otherwise, all questions were answered for the patient. If her knee becomes red or swollen, she should come into the clinic to have it checked. PHYSICAL EXAMINATION: Vital Signs: On discharge, temperature 98.4, pulse 78, blood pressure 120/66, respiratory rate 16, O2 of 97% on room air. General: She is in no acute distress. Heart: Irregular rate and rhythm. S1, S2 without murmurs noted. Lungs: Sounds are clear to auscultation bilaterally without crackles or wheezes. Abdomen: Mild distention, but nontender. Extremities: Warm and dry. No edema. No calf tenderness. Homans sign negative. She does have a well-healed left knee incision without any drainage or redness. There is a little bit of bruising in the knee, but no swelling. She has good range of motion to full extension. MKA: 10/13/2018 11:58:53 MODL: 10/13/2018 12:39:37 /[id number] MTDKyra
== END 2018-10-13 12:30 | disposition home or self-care (01) | DRG 560 ==
LOC: VM.MS 10-01 12:01
PROVIDERS: ADMIT Internal Medicine; ATTEND Internal Medicine
DX: Z47.1 Aftercare following joint replacement surgery (principal); I13.0 Hypertensive heart and chronic kidney disease with heart failure and stage 1 through stage 4 chronic kidney disease, or unspecified chronic kidney disease; I50.32 Chronic diastolic (congestive) heart failure; D62 Acute posthemorrhagic anemia; E78.5 Hyperlipidemia, unspecified; G47.33 Obstructive sleep apnea (adult) (pediatric); K76.9 Liver disease, unspecified; J44.9 Chronic obstructive pulmonary disease, unspecified; N18.3 Chronic kidney disease, stage 3 (moderate); E78.00 Pure hypercholesterolemia, unspecified; E11.22 Type 2 diabetes mellitus with diabetic chronic kidney disease; E11.21 Type 2 diabetes mellitus with diabetic nephropathy; E66.01 Morbid (severe) obesity due to excess calories; E11.40 Type 2 diabetes mellitus with diabetic neuropathy, unspecified; K59.03 Drug induced constipation; M15.0 Primary generalized (osteo)arthritis; Z96.652 Presence of left artificial knee joint; Z96.649 Presence of unspecified artificial hip joint; Z79.899 Other long term (current) drug therapy; Z79.82 Long term (current) use of aspirin; Z90.49 Acquired absence of other specified parts of digestive tract; Z90.89 Acquired absence of other organs; Z87.891 Personal history of nicotine dependence; Z79.4 Long term (current) use of insulin; Z88.0 Allergy status to penicillin; Z88.8 Allergy status to other drugs, medicaments and biological substances; Z68.38 Body mass index [BMI] 38.0-38.9, adult; Z98.49 Cataract extraction status, unspecified eye; Z98.890 Other specified postprocedural states
CPT/HCPCS: 36415; 80048; 82962; 85018; 85025; 97016-GP; 97110-GP; 97116-GP; 97161-GP; 97165-GO; 97530-GP; 97535-GO; A9270-GY; J1815-GY

== ENCOUNTER 2020-05-14 10:33 | Emergency (ER) | payer MEDICARE, OTHER ==
--- NOTE | 2020-05-14 11:55 | EDM.PDOC ---
ED HPI GENERAL MEDICAL PROBLEM - General Chief Complaint: Gastrointestinal Problem Stated Complaint: Weak/Diarrhea Time Seen by Provider: 05/14/20 10:56 Source of Information: Reports: Patient, Family, RN, RN Notes Reviewed History Limitations: Reports: No Limitations - History of Present Illness INITIAL COMMENTS - FREE TEXT/NARRATIVE: Patient is an 79-year-old female who presents to ER with complaint of recent diarrhea over the past few days, complaints of dizziness, chills, nausea, and decreased appetite. Patient states she had her second Covid vaccination on April 28 and has not felt well since then. Patient states her blood sugars have been high as of last evening and this morning they were 149 and 145 respectively, which she states is high for her. Patient denies fever, chest pains or any increased shortness of breath. She states she does have some shortness of breath but that is normal for her as she does have COPD. Patient is incontinent of stool and urine, states she has had increased amounts of stool and difficulty getting to the bathroom. Daughter states in the end of 2017 patient was found to be septic and then developed gastroparesis. It was thought that the sepsis was due to E. coli or a GI infection. Onset: Gradual - Related Data Allergies Allergy/AdvReac Type Severity Reaction Status Date / Time penicillin G Allergy Rash Verified 05/14/20 10:39 cerivastatin sodium AdvReac Muscle Verified 05/14/20 10:39 [From Baycol] Aches fluvastatin sodium AdvReac Muscle Verified 05/14/20 10:39 [From Lescol] Aches gemfibrozil AdvReac Muscle Verified 05/14/20 10:39 Aches pravastatin AdvReac Muscle Verified 05/14/20 10:39 Aches Home Meds: Home Meds Albuterol Sulfate [Albuterol Sulfate HFA] 1 - 2 puff PO Q4HR PRN 02/26/13 [History] Cholecalciferol (Vitamin D3) [Vitamin D] 5,000 unit PO DAILY 02/26/13 [History] Multivitamin [Multi-Vitamin Daily] 1 tab PO DAILY 02/26/13 [History] Fenofibrate Nanocrystallized [Tricor] 145 mg PO DAILY 04/03/17 [History] Acetaminophen 650 mg PO Q4HR PRN 10/01/18 [History] Aspirin [Aspirin EC] 325 mg PO BIDMEALS 10/01/18 [History] Ezetimibe [Zetia] 10 mg PO DAILY 10/01/18 [History] Lactobacillus Acidophilus [Probiotic] 1 each PO DAILY 10/01/18 [History] Lisinopril 20 mg PO DAILY 10/01/18 [History] Omeprazole 20 mg PO DAILY 10/01/18 [History] Sennosides/Docusate Sodium [Senna-Docusate Sodium Tablet] 1 tab PO BID 10/01/18 [History] SitaGLIPtin [Januvia] 50 mg PO DAILY 10/01/18 [History] amLODIPine Besylate [Amlodipine Besylate] 2.5 mg PO DAILY 10/01/18 [History] polyethylene glycoL 3350 [MiraLAX] 17 gm PO DAILY 10/01/18 [History] traMADol [Ultram] 50 mg PO Q6H PRN 10/01/18 [History] Insulin Detemir [Levemir Flextouch] 30 unit SQ BEDTIME #0 10/13/18 [Rx] Past Medical History HEENT History: Reports: Cataract Other HEENT History: PSEUDOPHAKOS. HYPERMETROPIA. 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: Musculoskeletal History: Reports: Osteoarthritis Other Musculoskeletal History: MORBID OBESITY Neurological History: Reports: Concussion, Neuropathy, Peripheral Psychiatric History: Reports: None Endocrine/Metabolic History: Reports: Diabetes, Type II, Obesity/BMI 30+ Hematologic History: Reports: None Immunologic History: Reports: None Oncologic (Cancer) History: Reports: None Dermatologic History: Reports: None - Infectious Disease History Infectious Disease History: Reports: None - Past Surgical History Head Surgeries/Procedures: Reports: None HEENT Surgical History: Reports: Adenoidectomy, Cataract Surgery, Tonsillectomy GI Surgical History: Reports: Appendectomy, Cholecystectomy Musculoskeletal Surgical History: Reports: Hip Replacement, Knee Replacement, Other (See Below) Oncologic Surgical History: Reports: Biopsy of Breast Social & Family History - Family History Family Medical History: No Pertinent Family History Cardiac: Reports: Hypertension Oncologic: Reports: Breast, Prostate - Caffeine Use Caffeine Use: Reports: Coffee, Tea Other Caffeine Use: vivarin one time a day - Living Situation & Occupation Living situation: Reports: Single ( and ), Alone Occupation: Retired ED ROS GENERAL - Review of Systems Review Of Systems: Comprehensive ROS is negative, except as noted in HPI. ED EXAM, GI/ABD - Physical Exam Exam: See Below Exam Limited By: No Limitations General Appearance: Alert, WD/WN, No Apparent Distress Eyes: Bilateral: Normal Appearance, EOMI Ears: Normal External Exam, Hearing Grossly Normal Nose: Normal Inspection Throat/Mouth: Normal Inspection, Normal Lips, Normal Teeth, Normal Gums, Normal Oropharynx, Normal Voice, No Airway Compromise Head: Atraumatic, Normocephalic Neck: Normal Inspection, Supple, Non-Tender, Full Range of Motion Respiratory/Chest: No Respiratory Distress, Lungs Clear, Normal Breath Sounds, No Accessory Muscle Use, Chest Non-Tender Cardiovascular: Normal Peripheral Pulses, Regular Rate, Rhythm, No Gallop, No JVD, No Murmur, Other (Pedal edema +2-3 bilaterally) GI/Abdominal Exam: Normal Bowel Sounds, Soft, Non-Tender, No Distention (Female) Exam: Deferred Rectal (Female) Exam: Deferred Back Exam: Normal Inspection, Decreased Range of Motion Extremities: Normal Inspection, Normal Range of Motion, Non-Tender, No Pedal Edema, Normal Capillary Refill Neurological: Alert, Oriented, CN II-XII Intact, Normal Cognition, Normal Reflexes, No Motor/Sensory Deficits Psychiatric: Normal Affect, Normal Mood Skin Exam: Warm, Dry, Intact, Normal Color, No Rash Lymphatic: No Adenopathy Course - Vital Signs Last Recorded V/S: Last Vital Signs Temp 97.8 F 05/14/20 10:45 Pulse 74 05/14/20 10:45 Resp 16 05/14/20 10:45 BP 119/73 05/14/20 10:45 Pulse Ox 97 05/14/20 10:45 - Orders/Labs/Meds Orders: Active Orders 24 hr Category Date Time Status CULTURE BLOOD [BC] Stat Lab 05/14/20 11:24 Received CULTURE BLOOD [BC] Stat Lab 05/14/20 11:33 Received Blood Culture x2 Reflex Set [OM.PC] Stat Oth 05/14/20 11:09 Ordered Labs: Laboratory Tests 05/14/20 05/14/20 05/14/20 Range/Units 11:24 11:24 11:24 WBC 8.4 (4.0-10.0) x10^3/uL RBC 4.44 (4.00-5.50) x10^6/uL Hgb 14.2 D (12.0-16.0) g/dL Hct 41.4 (33.0-47.0) % MCV 93.2 H (78.0-93.0) fL MCH 32.0 (26.0-32.0) pg MCHC 34.3 (32.0-36.0) g/dL RDW Coeff of Ana 12.4 (10.0-15.0) % Plt Count 241 D (130-400) x10^3/uL Neut % (Auto) 70.2 (50.0-80.0) % Lymph % (Auto) 18.3 L (25.0-50.0) % [place] % (Auto) 9.9 (2.0-11.0) % Eos % (Auto) 1.1 (0.0-4.0) % Baso % (Auto) 0.5 (0.2-1.2) % Sodium 136 (136-145) mmol/L Potassium 4.4 (3.5-5.1) mmol/L Chloride 100 (98-107) mmol/L Carbon Dioxide 24 (21-32) mmol/L Anion Gap 16.4 H (5-15) mmol/L BUN 25 H (7-18) mg/dL Creatinine 1.3 H (0.55-1.02) mg/dL Est Cr Clr Drug Dosing TNP Estimated GFR (MDRD) 39 Glucose 166 H (74-106) mg/dL Lactic Acid 1.8 (0.4-2.0) mmol/L Calcium 9.0 (8.5-10.1) mg/dL Corrected Calcium 9.32 (8.5-10.1) mg/dL Magnesium 1.4 L (1.8-2.4) mg/dL Total Bilirubin 0.7 (0.2-1.0) mg/dL AST 20 (15-37) U/L ALT 29 (14-59) U/L Alkaline Phosphatase 75 (46-116) U/L Total Protein 7.5 (6.4-8.2) g/dL Albumin 3.6 (3.4-5.0) g/dL Globulin 3.9 Albumin/Globulin Ratio 0.92 Urine Color (YELLOW) Urine Appearance (CLEAR) Urine pH (5.0-8.0) Ur Specific [place] Urine Protein (NEGATIVE) mg/dL Urine Glucose (UA) (NEGATIVE) mg/dL Urine Ketones (NEGATIVE) mg/dL Urine Occult Blood (NEGATIVE) Urine Nitrite (NEGATIVE) Urine Bilirubin (NEGATIVE) Urine Urobilinogen (0.2) EU/dL Ur Leukocyte Esterase (NEGATIVE) U Hyaline Cast (Auto) Urine RBC (NOT SEEN) /HPF Urine WBC (NOT SEEN) /HPF Ur Squamous Epith Cells (NOT SEEN) /HPF Urine Bacteria (NOT SEEN) /HPF Urine Mucus (NOT SEEN) /LPF 05/14/20 Range/Units 12:38 WBC (4.0-10.0) x10^3/uL RBC (4.00-5.50) x10^6/uL Hgb (12.0-16.0) g/dL Hct (33.0-47.0) % MCV (78.0-93.0) fL MCH (26.0-32.0) pg MCHC (32.0-36.0) g/dL RDW Coeff of Ana (10.0-15.0) % Plt Count (130-400) x10^3/uL Neut % (Auto) (50.0-80.0) % Lymph % (Auto) (25.0-50.0) % [place] % (Auto) (2.0-11.0) % Eos % (Auto) (0.0-4.0) % Baso % (Auto) (0.2-1.2) % Sodium (136-145) mmol/L Potassium (3.5-5.1) mmol/L Chloride (98-107) mmol/L Carbon Dioxide (21-32) mmol/L Anion Gap (5-15) mmol/L BUN (7-18) mg/dL Creatinine (0.55-1.02) mg/dL Est Cr Clr Drug Dosing Estimated GFR (MDRD) Glucose (74-106) mg/dL Lactic Acid (0.4-2.0) mmol/L Calcium (8.5-10.1) mg/dL Corrected Calcium (8.5-10.1) mg/dL Magnesium (1.8-2.4) mg/dL Total Bilirubin (0.2-1.0) mg/dL AST (15-37) U/L ALT (14-59) U/L Alkaline Phosphatase (46-116) U/L Total Protein (6.4-8.2) g/dL Albumin (3.4-5.0) g/dL Globulin Albumin/Globulin Ratio Urine Color Yellow (YELLOW) Urine Appearance Clear (CLEAR) Urine pH 5.5 (5.0-8.0) Ur Specific [place] 1.015 Urine Protein Negative (NEGATIVE) mg/dL Urine Glucose (UA) Negative (NEGATIVE) mg/dL Urine Ketones Negative (NEGATIVE) mg/dL Urine Occult Blood Trace-intact H (NEGATIVE) Urine Nitrite Negative (NEGATIVE) Urine Bilirubin Negative (NEGATIVE) Urine Urobilinogen 0.2 (0.2) EU/dL Ur Leukocyte Esterase Negative (NEGATIVE) U Hyaline Cast (Auto) Rare Urine RBC 0-5 (NOT SEEN) /HPF Urine WBC 0-5 (NOT SEEN) /HPF Ur Squamous Epith Cells Moderate H (NOT SEEN) /HPF Urine Bacteria Not seen (NOT SEEN) /HPF Urine Mucus Not seen (NOT SEEN) /LPF Meds: Medications Discontinued Medications Generic Name Dose Route Start Last Admin Trade Name Freq PRN Reason Stop Dose Admin Magnesium Sulfate 2 gm in 50 mls @ 200 mls/hr 05/14/20 12:24 05/14/20 14:35 Magnesium Sulfate In Water 2 Gm/50 Ml IV 05/14/20 12:38 Not Given ONETIME ONE Sodium Chloride 500 mls @ 250 mls/hr 05/14/20 12:25 05/14/20 12:48 Normal Saline IV 05/14/20 14:24 250 mls/hr ONETIME ONE Administration Magnesium Sulfate 2 gm in 50 mls @ 50 mls/hr 05/14/20 12:30 05/14/20 12:50 Magnesium Sulfate In Water 2 Gm/50 Ml IV 05/14/20 13:29 50 mls/hr ONETIME ONE Administration Departure - Departure Time of Disposition: 14:02 Disposition: Home, Self-Care 01 Condition: Good Clinical Impression: Hypomagnesemia Diarrhea Qualifiers: Diarrhea type: unspecified type Qualified Code(s): R19.7 - Diarrhea, unspecified - Discharge Information *PRESCRIPTION DRUG MONITORING PROGRAM REVIEWED*: No *COPY OF PRESCRIPTION DRUG MONITORING REPORT IN PATIENT CARLOS: No Instructions: Hypomagnesemia, Food Choices to Help Relieve Diarrhea, Adult, Diarrhea, Adult, [id number] Referrals: Whit Jamison DO [Primary Care Provider] - Forms: ED Department Discharge Additional Instructions: Follow up with Dr. Whit Jamison for your scheduled appointment tomorrow May use Imodium over the counter as directed for diarrhea Do not use this medication more than 2-3 days, if diarrhea persists, follow up with your primary care facility Sepsis Event Note (ED) - Focused Exam Vital Signs: Vital Signs Temp Pulse Resp BP Pulse Ox 05/14/20 10:45 97.8 F 74 16 119/73 97 - My Orders Last 24 Hours: My Active Orders 05/14/20 11:09 Blood Culture x2 Reflex Set [OM.PC] Stat 05/14/20 11:24 CULTURE BLOOD [BC] Stat 05/14/20 11:33 CULTURE BLOOD [BC] Stat - Assessment/Plan Last 24 Hours: My Active Orders 05/14/20 11:09 Blood Culture x2 Reflex Set [OM.PC] Stat 05/14/20 11:24 CULTURE BLOOD [BC] Stat 05/14/20 11:33 CULTURE BLOOD [BC] Stat
[2020-05-14 12:01] LABS: CHLORIDE,CL 100 mmol/L (98-107); SODIUM,NA 136 mmol/L (136-145)
[2020-05-14 12:04] LABS: ANION GAP 16.4 mmol/L (5-15)
[2020-05-14] MEDS ORDERED: Magnesium Sulfate/Water 2 GM/50 ML BAG IV ONE ×2 (12:24→12:30)
[2020-05-14] MEDS ORDERED: Sodium Chloride 0.9% 500 ML IV ONE (12:25)
[2020-05-14 14:35] VITALS: BP 119/73; PULSE 74
== END 2020-05-14 14:02 | disposition home or self-care (01) ==
LOC: VM.ED 10:33
DX: E83.42 Hypomagnesemia (principal); R19.7 Diarrhea, unspecified; I11.0 Hypertensive heart disease with heart failure; I50.9 Heart failure, unspecified; J44.9 Chronic obstructive pulmonary disease, unspecified; E11.21 Type 2 diabetes mellitus with diabetic nephropathy; E11.42 Type 2 diabetes mellitus with diabetic polyneuropathy; M19.90 Unspecified osteoarthritis, unspecified site; E66.01 Morbid (severe) obesity due to excess calories; Z88.8 Allergy status to other drugs, medicaments and biological substances; Z88.0 Allergy status to penicillin; Z79.82 Long term (current) use of aspirin; Z79.899 Other long term (current) drug therapy
CPT/HCPCS: 36415; 80053; 81001; 83605; 83735; 85025; 87040; 96365; 99284; 99284-25; J3475; J7030

== ENCOUNTER 2020-05-26 12:30 | Emergency (ER) | payer MEDICARE, OTHER ==
[2020-05-26] MEDS ORDERED: Sodium Chloride 0.9% 10 ML Syringe FLUSH PRN (12:51)
[2020-05-26] MEDS ORDERED: Lactated Ringers 1,000 ML IV ONE (12:52)
[2020-05-26 12:54] VITALS: BP 116/70; PULSE 85
--- NOTE | 2020-05-26 13:11 | EDM.PDOC ---
<Lester Jha W - Last Filed: 05/26/20 16:33> ED HPI GENERAL MEDICAL PROBLEM - General Chief Complaint: Gastrointestinal Problem Stated Complaint: WEAK-DOESN'T FEEL GOOD Time Seen by Provider: 05/26/20 12:37 Source of Information: Reports: Patient, Family History Limitations: Reports: No Limitations - History of Present Illness INITIAL COMMENTS - FREE TEXT/NARRATIVE: Pt. presents to ER with complaints of diarrhea and gas. She was seen for the same on 05/14. Her magnesium was low at that time. She was hydrated with IV crystalloid and started on IV magnesium. She was started on oral magnesium, but only started taking this yesterday. Pt. denies any abdominal pain. No nausea/vomiting. No bloody stools. No hematemesis. Denies any dysuria. They did not do any stool studies, as the patient had only been symptomatic for a few days prior to being seen in ER last time. Primary complaint today is of continued diarrhea, weakness, and lightheadedness. Onset Date: 05/10/20 Location: Reports: Abdomen, Generalized - Related Data Allergies Allergy/AdvReac Type Severity Reaction Status Date / Time penicillin G Allergy Rash Verified 05/26/20 12:49 cerivastatin sodium AdvReac Muscle Verified 05/26/20 12:49 [From Baycol] Aches fluvastatin sodium AdvReac Muscle Verified 05/26/20 12:49 [From Lescol] Aches gemfibrozil AdvReac Muscle Verified 05/26/20 12:49 Aches pravastatin AdvReac Muscle Verified 05/26/20 12:49 Aches Home Meds: Home Meds Albuterol Sulfate [Albuterol Sulfate HFA] 1 - 2 puff PO Q4HR PRN 02/26/13 [History] Multivitamin [Multi-Vitamin Daily] 1 tab PO DAILY 02/26/13 [History] Ezetimibe [Zetia] 10 mg PO DAILY 10/01/18 [History] Lisinopril 20 mg PO DAILY 10/01/18 [History] amLODIPine Besylate [Amlodipine Besylate] 2.5 mg PO DAILY 10/01/18 [History] Acetaminophen 500 mg PO Q4H PRN 05/26/20 [History] Aspirin 81 mg PO DAILY 05/26/20 [History] Caffeine 200 mg PO DAILY 05/26/20 [History] Chlorthalidone 12.5 mg PO DAILY 05/26/20 [History] Escitalopram Oxalate [Lexapro] 5 mg PO BEDTIME 05/26/20 [History] Fluticasone/Vilanterol [Breo Ellipta 200-25 MCG Inhalation Kit] 1 puff INH DAILY 05/26/20 [History] Insulin Glargine,Hum.Rec.Anlog [Basaglar Kwikpen U-100] 18 unit SQ BEDTIME 0 05/26/20 [History] Magnesium Oxide [Magnesium] 400 mg PO DAILY 05/26/20 [History] Past Medical History HEENT History: Reports: Cataract Other HEENT History: PSEUDOPHAKOS. HYPERMETROPIA. 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: Musculoskeletal History: Reports: Osteoarthritis Other Musculoskeletal History: MORBID OBESITY Neurological History: Reports: Concussion, Neuropathy, Peripheral Psychiatric History: Reports: None Endocrine/Metabolic History: Reports: Diabetes, Type II, Obesity/BMI 30+ Hematologic History: Reports: None Immunologic History: Reports: None Oncologic (Cancer) History: Reports: None Dermatologic History: Reports: None - Infectious Disease History Infectious Disease History: Reports: None - Past Surgical History Head Surgeries/Procedures: Reports: None HEENT Surgical History: Reports: Adenoidectomy, Cataract Surgery, Tonsillectomy GI Surgical History: Reports: Appendectomy, Cholecystectomy Musculoskeletal Surgical History: Reports: Hip Replacement, Knee Replacement, Other (See Below) Oncologic Surgical History: Reports: Biopsy of Breast Social & Family History - Family History Family Medical History: No Pertinent Family History Cardiac: Reports: Hypertension Oncologic: Reports: Breast, Prostate - Caffeine Use Caffeine Use: Reports: Coffee, Tea Other Caffeine Use: vivarin one time a day - Living Situation & Occupation Living situation: Reports: Single ( and ), Alone Occupation: Retired ED ROS GENERAL - Review of Systems Review Of Systems: See Below Constitutional: Reports: Fatigue HEENT: Reports: No Symptoms Respiratory: Reports: No Symptoms Cardiovascular: Reports: No Symptoms Endocrine: Reports: No Symptoms GI/Abdominal: Reports: Diarrhea. Denies: Black Stool, Bloody Stool, Hematochezia, Melena : Reports: No Symptoms Musculoskeletal: Reports: No Symptoms Skin: Reports: No Symptoms Neurological: Reports: No Symptoms Psychiatric: Reports: No Symptoms Hematologic/Lymphatic: Reports: No Symptoms Immunologic: Reports: No Symptoms ED EXAM, GENERAL - Physical Exam Exam: See Below Exam Limited By: No Limitations General Appearance: Alert, WD/WN, No Apparent Distress, Other (Non-toxic appearing) Neck: Normal Inspection, Supple, Non-Tender, Full Range of Motion Respiratory/Chest: No Respiratory Distress, Lungs Clear, No Accessory Muscle Use, Chest Non-Tender Cardiovascular: Normal Peripheral Pulses, Regular Rate, Rhythm, No Edema, No JVD, No Murmur GI/Abdominal: Soft, Non-Tender, No Distention, No Mass, Other (hyperactive) (Female) Exam: Deferred Rectal (Female) Exam: Deferred Back Exam: Normal Inspection, Full Range of Motion Extremities: Normal Inspection, Normal Range of Motion, Non-Tender, No Pedal Edema, Normal Capillary Refill Neurological: Alert, Oriented, CN II-XII Intact, Normal Cognition, Normal Gait Psychiatric: Normal Affect, Normal Mood Skin Exam: Warm, Dry, Intact, Normal Color, No Rash Lymphatic: No Adenopathy Departure - Departure Time of Disposition: 16:33 Disposition: Home, Self-Care 01 Clinical Impression: Gastroenteritis - Discharge Information Instructions: Diarrhea, Adult, [id number] Referrals: Whit Jamison, [Primary Care Provider] - Forms: ED Department Discharge Additional Instructions: Continue with the magnesium Recheck in clinic as planned She is not running a white count, is not toxic appearing, and lactic acid is normal, so I think it is OK for her to try some over the counter immodium. One tab every 4-6 hours. Collect stool sample. Bring to ER immediately. It needs to be refrigerated within 30min, so if you can't get here within 30 min, place container in refrigerator. Drink plenty of fluids Sepsis Event Note (ED) - Evaluation Sepsis Screening Result: No Definite Risk <Farheen Pastor - Last Filed: 05/30/20 16:39> Course - Vital Signs Last Recorded V/S: Last Vital Signs Temp 36.9 C 05/26/20 12:30 Pulse 85 05/26/20 12:30 Resp 16 05/26/20 12:30 BP 116/70 05/26/20 12:30 Pulse Ox 95 05/26/20 12:30 - Orders/Labs/Meds Labs: Laboratory Tests 05/26/20 05/26/20 05/26/20 Range/Units 12:56 13:20 13:20 WBC 8.9 (4.0-10.0) x10^3/uL RBC 4.38 (4.00-5.50) x10^6/uL Hgb 13.8 (12.0-16.0) g/dL Hct 40.1 (33.0-47.0) % MCV 91.6 (78.0-93.0) fL MCH 31.5 (26.0-32.0) pg MCHC 34.4 (32.0-36.0) g/dL RDW Coeff of Ana 12.2 (10.0-15.0) % Plt Count 283 (130-400) x10^3/uL Neut % (Auto) 71.1 (50.0-80.0) % Lymph % (Auto) 20.5 L (25.0-50.0) % [place] % (Auto) 7.3 (2.0-11.0) % Eos % (Auto) 0.7 (0.0-4.0) % Baso % (Auto) 0.4 (0.2-1.2) % Sodium 136 (136-145) mmol/L Potassium 4.3 (3.5-5.1) mmol/L Chloride 99 (98-107) mmol/L Carbon Dioxide 25 (21-32) mmol/L Anion Gap 16.3 H (5-15) mmol/L BUN 29 H (7-18) mg/dL Creatinine 1.3 H (0.55-1.02) mg/dL Est Cr Clr Drug Dosing 24.79 mL/min Estimated GFR (MDRD) 39 Glucose 119 H (74-106) mg/dL Calcium 9.2 (8.5-10.1) mg/dL Corrected Calcium 9.52 (8.5-10.1) mg/dL Magnesium 1.5 L (1.8-2.4) mg/dL Total Bilirubin 0.6 (0.2-1.0) mg/dL AST 25 (15-37) U/L ALT 31 (14-59) U/L Alkaline Phosphatase 73 (46-116) U/L C-Reactive Protein 0.6 (<=0.9) mg/dL Total Protein 7.2 (6.4-8.2) g/dL Albumin 3.6 (3.4-5.0) g/dL Globulin 3.6 Albumin/Globulin Ratio 1.00 Urine Color (YELLOW) Urine Appearance (CLEAR) Urine pH (5.0-8.0) Ur Specific [place] Urine Protein (NEGATIVE) mg/dL Urine Glucose (UA) (NEGATIVE) mg/dL Urine Ketones (NEGATIVE) mg/dL Urine Occult Blood (NEGATIVE) Urine Nitrite (NEGATIVE) Urine Bilirubin (NEGATIVE) Urine Urobilinogen (0.2) EU/dL Ur Leukocyte Esterase (NEGATIVE) SARS-CoV-2 RNA (ANUJA) Negative (NEGATIVE) 05/26/20 Range/Units 14:15 WBC (4.0-10.0) x10^3/uL RBC (4.00-5.50) x10^6/uL Hgb (12.0-16.0) g/dL Hct (33.0-47.0) % MCV (78.0-93.0) fL MCH (26.0-32.0) pg MCHC (32.0-36.0) g/dL RDW Coeff of Ana (10.0-15.0) % Plt Count (130-400) x10^3/uL Neut % (Auto) (50.0-80.0) % Lymph % (Auto) (25.0-50.0) % [place] % (Auto) (2.0-11.0) % Eos % (Auto) (0.0-4.0) % Baso % (Auto) (0.2-1.2) % Sodium (136-145) mmol/L Potassium (3.5-5.1) mmol/L Chloride (98-107) mmol/L Carbon Dioxide (21-32) mmol/L Anion Gap (5-15) mmol/L BUN (7-18) mg/dL Creatinine (0.55-1.02) mg/dL Est Cr Clr Drug Dosing mL/min Estimated GFR (MDRD) Glucose (74-106) mg/dL Calcium (8.5-10.1) mg/dL Corrected Calcium (8.5-10.1) mg/dL Magnesium (1.8-2.4) mg/dL Total Bilirubin (0.2-1.0) mg/dL AST (15-37) U/L ALT (14-59) U/L Alkaline Phosphatase (46-116) U/L C-Reactive Protein (<=0.9) mg/dL Total Protein (6.4-8.2) g/dL Albumin (3.4-5.0) g/dL Globulin Albumin/Globulin Ratio Urine Color Yellow (YELLOW) Urine Appearance Clear (CLEAR) Urine pH 6.0 (5.0-8.0) Ur Specific [place] 1.010 Urine Protein Negative (NEGATIVE) mg/dL Urine Glucose (UA) Negative (NEGATIVE) mg/dL Urine Ketones Negative (NEGATIVE) mg/dL Urine Occult Blood Negative (NEGATIVE) Urine Nitrite Negative (NEGATIVE) Urine Bilirubin Negative (NEGATIVE) Urine Urobilinogen 0.2 (0.2) EU/dL Ur Leukocyte Esterase Negative (NEGATIVE) SARS-CoV-2 RNA (ANUJA) (NEGATIVE) Meds: Medications Discontinued Medications Generic Name Dose Route Start Last Admin Trade Name Freq PRN Reason Stop Dose Admin Lactated Ringer's 1,000 mls @ 1,000 mls/hr 05/26/20 12:52 05/26/20 12:59 Ringers, Lactated IV 05/26/20 13:51 1,000 mls/hr ONETIME ONE Administration Sodium Chloride 500 mls @ 500 mls/hr 05/26/20 14:38 05/26/20 14:56 Normal Saline IV 05/26/20 15:37 500 mls/hr ONETIME ONE Administration Magnesium Sulfate 4 gm in 100 mls @ 50 mls/hr 05/26/20 14:39 05/26/20 14:57 Magnesium Sulfate In Water 4 Gm/100 Ml IV 05/26/20 16:38 50 mls/hr ONETIME ONE Administration Sodium Chloride 10 ml 05/26/20 12:51 Sodium Chloride 0.9% 10 Ml Syringe FLUSH ASDIRECTED PRN Keep Vein Open - Assessment/Plan Plan: O:Reviewed labs. Note Stools for C diff is POSITIVE. A/P: Notified Dr Whit Jamison who is seeing this patient for followup of pos c diff, she will will treat patient for organism.
[2020-05-26 13:49] LABS: ANION GAP 16.3 mmol/L (5-15)
[2020-05-26] MEDS ORDERED: Sodium Chloride 0.9% 500 ML IV ONE (14:38)
[2020-05-26] MEDS ORDERED: Magnesium Sulfate/Water 4 GM/100 ML BAG IV ONE (14:39)
== END 2020-05-26 17:15 | disposition home or self-care (01) ==
LOC: VM.ED 12:30
DX: K52.9 Noninfective gastroenteritis and colitis, unspecified (principal); I11.0 Hypertensive heart disease with heart failure; I50.9 Heart failure, unspecified; J44.9 Chronic obstructive pulmonary disease, unspecified; M19.90 Unspecified osteoarthritis, unspecified site; E66.01 Morbid (severe) obesity due to excess calories; E11.42 Type 2 diabetes mellitus with diabetic polyneuropathy; E11.21 Type 2 diabetes mellitus with diabetic nephropathy; Z68.35 Body mass index [BMI] 35.0-35.9, adult; Z88.0 Allergy status to penicillin; Z88.1 Allergy status to other antibiotic agents; Z79.82 Long term (current) use of aspirin; Z79.4 Long term (current) use of insulin; Z79.899 Other long term (current) drug therapy; Z20.822 Contact with and (suspected) exposure to COVID-19
CPT/HCPCS: 36415; 80053; 81003; 83735; 85025; 86140; 96365; 99283; 99284-25; J3475; J7030; J7120; U0002

== ENCOUNTER 2020-08-17 13:58 | Emergency (ER) | payer MEDICARE, OTHER ==
--- NOTE | 2020-08-17 14:21 | EDM.PDOC ---
ED HPI GENERAL MEDICAL PROBLEM - General Stated Complaint: WEAKNESS Time Seen by Provider: 08/17/20 14:05 Source of Information: Reports: Patient History Limitations: Reports: No Limitations - History of Present Illness INITIAL COMMENTS - FREE TEXT/NARRATIVE: Patient presents with family, for concerns for low magnesium. She has been struggling with explosive diarrhea for some time. This has been worked up with negative stools cultures for parasites, and c diff. She has been taking 200 mg of oral magnesium daily because she has had low levels in the past. She had two explosive bowel movements today. She always feels weak after this. She was weak this morning and continues to be a little tired but has eaten and drank. Took a gatorade today and drank it all. no pain. Family is leaving town today and they did not think she should wait until her appointment Friday to check her electrolytes Onset: Today Duration: Hour(s):, Other (improving ) Improves with: Reports: Rest Worsens with: Reports: None - Related Data Allergies Allergy/AdvReac Type Severity Reaction Status Date / Time penicillin G Allergy Rash Verified 05/26/20 12:49 cerivastatin sodium AdvReac Muscle Verified 05/26/20 12:49 [From Baycol] Aches fluvastatin sodium AdvReac Muscle Verified 05/26/20 12:49 [From Lescol] Aches gemfibrozil AdvReac Muscle Verified 05/26/20 12:49 Aches pravastatin AdvReac Muscle Verified 05/26/20 12:49 Aches Home Meds: Home Meds Albuterol Sulfate [Albuterol Sulfate HFA] 1 - 2 puff PO Q4HR PRN 02/26/13 [History] Multivitamin [Multi-Vitamin Daily] 1 tab PO DAILY 02/26/13 [History] Ezetimibe [Zetia] 10 mg PO DAILY 10/01/18 [History] Lisinopril 20 mg PO DAILY 10/01/18 [History] amLODIPine Besylate [Amlodipine Besylate] 2.5 mg PO DAILY 10/01/18 [History] Acetaminophen 500 mg PO Q4H PRN 05/26/20 [History] Aspirin 81 mg PO DAILY 05/26/20 [History] Caffeine 200 mg PO DAILY 05/26/20 [History] Chlorthalidone 12.5 mg PO DAILY 05/26/20 [History] Escitalopram Oxalate [Lexapro] 5 mg PO BEDTIME 05/26/20 [History] Fluticasone/Vilanterol [Breo Ellipta 200-25 MCG Inhalation Kit] 1 puff INH DAILY 05/26/20 [History] Insulin Glargine,Hum.Rec.Anlog [Basaglar Kwikpen U-100] 18 unit SQ BEDTIME 05/26/20 [History] Magnesium Oxide [Magnesium] 400 mg PO DAILY 05/26/20 [History] Past Medical History HEENT History: Reports: Cataract Other HEENT History: PSEUDOPHAKOS. HYPERMETROPIA. 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: Musculoskeletal History: Reports: Osteoarthritis Other Musculoskeletal History: MORBID OBESITY Neurological History: Reports: Concussion, Neuropathy, Peripheral Psychiatric History: Reports: None Endocrine/Metabolic History: Reports: Diabetes, Type II, Obesity/BMI 30+ Hematologic History: Reports: None Immunologic History: Reports: None Oncologic (Cancer) History: Reports: None Dermatologic History: Reports: None - Infectious Disease History Infectious Disease History: Reports: None - Past Surgical History Head Surgeries/Procedures: Reports: None HEENT Surgical History: Reports: Adenoidectomy, Cataract Surgery, Tonsillectomy GI Surgical History: Reports: Appendectomy, Cholecystectomy Musculoskeletal Surgical History: Reports: Hip Replacement, Knee Replacement, Other (See Below) Oncologic Surgical History: Reports: Biopsy of Breast Social & Family History - Family History Family Medical History: No Pertinent Family History Cardiac: Reports: Hypertension Oncologic: Reports: Breast, Prostate - Caffeine Use Caffeine Use: Reports: Coffee, Tea Other Caffeine Use: vivarin one time a day - Living Situation & Occupation Living situation: Reports: Single ( and ), Alone Occupation: Retired ED ROS GENERAL - Review of Systems Review Of Systems: See Below Constitutional: Reports: Weakness, Fatigue HEENT: Reports: No Symptoms Respiratory: Reports: No Symptoms. Denies: Shortness of Breath, Wheezing Cardiovascular: Reports: No Symptoms. Denies: Chest Pain, Lightheadedness Endocrine: Reports: No Symptoms, Fatigue GI/Abdominal: Reports: Diarrhea. Denies: Abdominal Pain, Black Stool, Bloody Stool, Nausea, Vomiting : Reports: No Symptoms Musculoskeletal: Reports: No Symptoms Skin: Reports: No Symptoms Neurological: Reports: No Symptoms Psychiatric: Reports: No Symptoms Hematologic/Lymphatic: Reports: No Symptoms ED EXAM, GENERAL - Physical Exam Exam: See Below Exam Limited By: No Limitations General Appearance: Alert, No Apparent Distress Eye Exam: Bilateral Eye: EOMI, PERRL Ears: Normal External Exam Nose: Normal Inspection, Normal Mucosa Throat/Mouth: Normal Inspection, Normal Lips, Normal Teeth, Normal Oropharynx, Normal Voice Head: Atraumatic Respiratory/Chest: No Respiratory Distress, Lungs Clear, Normal Breath Sounds, No Accessory Muscle Use Cardiovascular: Normal Peripheral Pulses, Regular Rate, Rhythm, No Edema, No Murmur GI/Abdominal: Normal Bowel Sounds, Soft, Non-Tender, No Distention (Female) Exam: Deferred Back Exam: Normal Inspection Extremities: Normal Inspection, Normal Range of Motion, Non-Tender Neurological: Alert, Oriented, CN II-XII Intact, Normal Cognition Skin Exam: Warm, Dry Course - Orders/Labs/Meds Orders: Active Orders 24 hr Category Date Time Status Magnesium Sulfate/Water [Magnesium Sulfate in Water 2 Med 08/17/20 15:02 Ordered GM/50 ML] 2 gm Premix Bag 1 bag IV ONETIME Sodium Chloride 0.9% [Saline Flush] Med 08/17/20 15:03 Ordered 10 ml FLUSH ASDIRECTED PRN Peripheral IV Insertion Adult [OM.PC] Routine Oth 08/17/20 15:03 Ordered Medication Orders Magnesium Sulfate 2 gm/ Premix 50 mls @ 25 mls/hr IV ONETIME ONE Stop: 08/17/20 17:01 Last Admin: 08/17/20 15:07 Dose: 25 mls/hr Documented by: Sodium Chloride (Sodium Chloride 0.9% 10 Ml Syringe) 10 ml FLUSH ASDIRECTED PRN PRN Reason: Keep Vein Open Labs: Laboratory Tests 08/17/20 08/17/20 Range/Units 14:30 14:30 WBC 6.5 (4.0-10.0) x10^3/uL RBC 4.26 (4.00-5.50) x10^6/uL Hgb 13.5 (12.0-16.0) g/dL Hct 39.1 (33.0-47.0) % MCV 91.8 (78.0-93.0) fL MCH 31.7 (26.0-32.0) pg MCHC 34.5 (32.0-36.0) g/dL RDW Coeff of Ana 13.2 (10.0-15.0) % Plt Count 226 (130-400) x10^3/uL Neut % (Auto) 62.2 (50.0-80.0) % Lymph % (Auto) 27.6 (25.0-50.0) % [place] % (Auto) 7.9 (2.0-11.0) % Eos % (Auto) 1.5 (0.0-4.0) % Baso % (Auto) 0.8 (0.2-1.2) % Sodium 136 (136-145) mmol/L Potassium 4.9 (3.5-5.1) mmol/L Chloride 103 (98-107) mmol/L Carbon Dioxide 21 (21-32) mmol/L Anion Gap 16.9 H (5-15) mmol/L BUN 29 H (7-18) mg/dL Creatinine 1.2 H (0.55-1.02) mg/dL Est Cr Clr Drug Dosing TNP Estimated GFR (MDRD) 43 Glucose 118 H (70-99) mg/dL Calcium 8.7 (8.5-10.1) mg/dL Corrected Calcium 9.2 (8.5-10.1) mg/dL Magnesium 1.3 L (1.8-2.4) mg/dL Total Bilirubin 0.3 (0.2-1.0) mg/dL AST 20 (15-37) U/L ALT 24 (14-59) U/L Alkaline Phosphatase 63 (46-116) U/L Total Protein 6.7 (6.4-8.2) g/dL Albumin 3.4 (3.4-5.0) g/dL Globulin 3.3 Albumin/Globulin Ratio 1.03 Meds: Medications Generic Name Dose Route Start Last Admin Trade Name Freq PRN Reason Stop Dose Admin Magnesium Sulfate 2 gm/ Premix 50 mls @ 25 mls/hr 08/17/20 15:02 08/17/20 15:07 IV 08/17/20 17:01 25 mls/hr ONETIME ONE Administration Sodium Chloride 10 ml 08/17/20 15:03 Sodium Chloride 0.9% 10 Ml Syringe FLUSH ASDIRECTED PRN Keep Vein Open - Re-Assessments/Exams Free Text/Narrative Re-Assessment/Exam: 08/17/20 14:30 Patient appears well, no signs of dehydration. Will check her labs, 08/17/20 15:04 Patient's magnesium is slightly low. Discussed IV versus oral replacement. Prefers IV. Will give 2 grams of magnesium. Directed to take magnesium 400 mg bid for the next 3 days then 400 days. Discussed probiotic use, gastroenterology referral, magnesium rich food. Has appointemnt in 4 days. Will discuss testing at clinic and presenting for infusion if needed Departure - Departure Time of Disposition: 15:08 Disposition: Home, Self-Care 01 Clinical Impression: Hypomagnesemia Diarrhea Qualifiers: Diarrhea type: unspecified type Qualified Code(s): R19.7 - Diarrhea, unspecified - Discharge Information *PRESCRIPTION DRUG MONITORING PROGRAM REVIEWED*: Not Applicable *COPY OF PRESCRIPTION DRUG MONITORING REPORT IN PATIENT CARLOS: Not Applicable Instructions: Hypomagnesemia, Food Choices to Help Relieve Diarrhea, Adult Referrals: Whit Jamison, [Primary Care Provider] - Additional Instructions: You were given 2 grams of magnesium in the ED. take your oral supplement 400mg twice a day for the next three days, then take 400 mg daily. Continue your oral probiotic. Add fiber to your diet. Keep your appointment with your physician in 4 days. Discuss possible gastroenterology referral with colonoscopy. Discuss the possibility of infusions set up as an outpatient to prevent ER visit charges. Foods rich in magnesium avocado Nuts: almonds, cashews, brazil nuts dark chocolate Legumes: lentils, beans, chickpeas, peas and soybeans Tofu Seeds: flax, pumpkin and valentina seeds Whole grains like buckwheat and quinoa salmon bananas leafy greens : spinach, kale, gabby greens, turnip greens, mustard greens - My Orders Last 24 Hours: My Active Orders 08/17/20 15:02 Magnesium Sulfate/Water [Magnesium Sulfate in Water 2 GM/50 ML] 2 gm Premix Bag 1 bag IV ONETIME 08/17/20 15:03 Sodium Chloride 0.9% [Saline Flush] 10 ml FLUSH ASDIRECTED PRN Peripheral IV Insertion Adult [OM.PC] Routine - Assessment/Plan Last 24 Hours: My Active Orders 08/17/20 15:02 Magnesium Sulfate/Water [Magnesium Sulfate in Water 2 GM/50 ML] 2 gm Premix Bag 1 bag IV ONETIME 08/17/20 15:03 Sodium Chloride 0.9% [Saline Flush] 10 ml FLUSH ASDIRECTED PRN Peripheral IV Insertion Adult [OM.PC] Routine
[2020-08-17 14:51] LABS: ANION GAP 16.9 mmol/L (5-15); CHLORIDE,CL 103 mmol/L (98-107); SODIUM,NA 136 mmol/L (136-145)
[2020-08-17] MEDS ORDERED: Sodium Chloride 0.9% 10 ML Syringe FLUSH PRN (15:03)
[2020-08-17] MEDS: Magnesium Sulfate/Water 2 GM in Premix Bag 1 BAG IV ONE (15:07)
[2020-08-17 19:45] VITALS: BP 110/67; PULSE 66
== END 2020-08-17 17:19 | disposition home or self-care (01) ==
LOC: VM.ED 13:58
DX: R19.7 Diarrhea, unspecified (principal); E83.42 Hypomagnesemia; E78.00 Pure hypercholesterolemia, unspecified; I11.0 Hypertensive heart disease with heart failure; I50.9 Heart failure, unspecified; E11.9 Type 2 diabetes mellitus without complications; E66.9 Obesity, unspecified; Z68.30 Body mass index [BMI] 30.0-30.9, adult; Z79.82 Long term (current) use of aspirin; Z79.899 Other long term (current) drug therapy; Z79.4 Long term (current) use of insulin; Z88.0 Allergy status to penicillin; Z88.8 Allergy status to other drugs, medicaments and biological substances
CPT/HCPCS: 36415; 80053; 83735; 85025; 96365; 96366; 99284; 99284-25; J3475

== ENCOUNTER 2021-06-01 20:20 | Emergency (ER) | payer MEDICARE, OTHER ==
[2021-06-01] MEDS: Furosemide 40 MG/4 ML VIAL IV ONE (20:40)
[2021-06-01 21:01] LABS: PTT,PARTIAL THROMBOPLSTIN TIME 22.6 SEC (20.5-30.9)
[2021-06-01 21:12] LABS: ANION GAP 13.8 mmol/L (5-15); CHLORIDE,CL 102 mmol/L (98-107); SODIUM,NA 136 mmol/L (136-145)
[2021-06-01 23:17] VITALS: BP 158/53; PULSE 68
== END 2021-06-01 22:10 | disposition home or self-care (01) ==
LOC: VM.ED 20:20
DX: I11.0 Hypertensive heart disease with heart failure (principal); I50.9 Heart failure, unspecified; E78.00 Pure hypercholesterolemia, unspecified; J44.9 Chronic obstructive pulmonary disease, unspecified; E11.9 Type 2 diabetes mellitus without complications; E66.01 Morbid (severe) obesity due to excess calories; Z68.36 Body mass index [BMI] 36.0-36.9, adult; Z88.1 Allergy status to other antibiotic agents; Z88.8 Allergy status to other drugs, medicaments and biological substances; Z79.4 Long term (current) use of insulin; Z79.82 Long term (current) use of aspirin
CPT/HCPCS: 71045; 80053; 83735; 83880; 84100; 84443; 84484; 85025; 85610; 85730; 86140; 93005; 93010; 96374; 99284; 99285; J1940; 36415

== ENCOUNTER 2023-11-13 19:56 | Emergency (ER) | payer MEDICARE, OTHER ==
[2023-11-13 20:22] LABS: BASOPHILS PERCENT AUTO 0.3 % (0.2-1.2); EOSINOPHILS ABSOLUTE AUTO 0.3 x10^3/uL (0.0-0.5); EOSINOPHILS PERCENT AUTO 2.3 % (0.0-4.0); HEMATOCRIT 41.6 % (33.0-47.0); IMMATURE GRAN ABSOLUTE AUTO 0.06 x10^3/uL (0.00-0.07); LYMPHOCYTES ABSOLUTE AUTO 2.2 x10^3/uL (1.0-4.8); LYMPHOCYTES PERCENT AUTO 17.8 % (25.0-50.0); MEAN CORPUSCULAR HEMOGLOBIN 31.2 pg (26.0-32.0); MEAN CORPUSCULAR HGB CONC 33.7 g/dL (32.0-36.0); MEAN CORPUSCULAR VOLUME 92.7 fL (78.0-93.0); MONOCYTES ABSOLUTE AUTO 1.1 x10^3/uL (0.0-0.8); MONOCYTES PERCENT AUTO 9.2 % (2.0-11.0); NEUTROPHILS ABSOLUTE AUTO 8.7 x10^3/uL (1.8-7.7); NEUTROPHILS PERCENT AUTO 69.9 % (50.0-80.0); PLATELET COUNT,PLT 232 x10^3/uL (130-400); RED BLOOD CELL COUNT 4.49 x10^6/uL (4.00-5.50); WHITE BLOOD CELL COUNT,WBC 12.4 x10^3/uL (4.0-10.0)
[2023-11-13 20:39] LABS: A/G RATIO 1.06; ALANINE AMINOTRANSFERASE,ALT 25 U/L (14-59); ALBUMIN 3.8 g/dL (3.4-5.0); ALKALINE PHOSPHATASE 69 U/L (46-116); ASPARTATE AMNIOTRANSFERASE,AST 26 U/L (15-37); BILIRUBIN TOTAL 0.4 mg/dL (0.2-1.0); BLOOD UREA NITROGEN,BUN 27 mg/dL (7-18); CALCIUM 9.5 mg/dL (8.5-10.1); CARBON DIOXIDE,CO2 27 mmol/L (21-32); CHLORIDE,CL 98 mmol/L (98-107); CREATININE 1.5 mg/dL (0.55-1.02); GLUCOSE RANDOM 186 mg/dL (70-99); POTASSIUM,K 4.7 mmol/L (3.5-5.1); PROTEIN TOTAL,TP 7.4 g/dL (6.4-8.2); SODIUM,NA 137 mmol/L (136-145)
[2023-11-13 20:40] VITALS: BP 146/65; PULSE 76
[2023-11-13 20:40] LABS: ANION GAP 16.7 mmol/L (5-15); ESTIMATED GFR 34 mL/min (>=60)
[2023-11-13] MEDS: cefTRIAXone 1 GM, Lidocaine 1% 2.1 ML IM ONE (21:25)
== END 2023-11-13 21:52 ==
LOC: VM.ED 19:56
DX: L03.115 Cellulitis of right lower limb (principal); I11.0 Hypertensive heart disease with heart failure; I50.9 Heart failure, unspecified; E78.00 Pure hypercholesterolemia, unspecified; J44.9 Chronic obstructive pulmonary disease, unspecified; E11.9 Type 2 diabetes mellitus without complications; E66.9 Obesity, unspecified; M19.90 Unspecified osteoarthritis, unspecified site; Z90.49 Acquired absence of other specified parts of digestive tract; Z79.899 Other long term (current) drug therapy; Z79.4 Long term (current) use of insulin; Z79.82 Long term (current) use of aspirin; Z88.8 Allergy status to other drugs, medicaments and biological substances; Z88.0 Allergy status to penicillin
CPT/HCPCS: 36415; 73620-LT; 80053; 85025; 96372; 99284; J0696; J3490